=== PATIENT | female | born 1950 | race Caucasian/White ===

== ENCOUNTER 2017-01-05 19:13 | Inpatient (IN) | payer OTHER ==
[~2017-01-05] VITALS: Ht 165.1 cm; Wt 132.2 kg
[2017-01-05 20:15] LABS: HEMATOCRIT 43.4 % (36.0-46.0); MCH 30.3 PG (29.0-34.0); MCHC 31.8 G/DL (30.0-36.0); MCV 95.2 FL (83-99); MEAN PLAT.VOLUME 11.5 uM^3 (9.5-12.4); PLATELET COUNT 179 K/uL (156-360); RBC DIS.WIDTH-CV 13.3 % (11.8-14.6); RBC DIS.WIDTH-SD 46.9 % (39-53); RED BLOOD COUNT 4.56 M/uL (3.80-5.20); WHITE BLOOD COUNT 12.8 K/uL (4.1-10.2)
[2017-01-05 20:23] LABS: CHLORIDE 103 mEq/L (99-109); POTASSIUM 4.1 mEq/L (3.7-5.4); SODIUM 141 mEq/L (136-147)
[2017-01-05 20:25] LABS: GLUCOSE 240 mg/dL (70-99)
[2017-01-05 20:26] LABS: ANION GAP 8 MEQ/L (2-14)
[2017-01-05 20:27] LABS: TOTAL BILIRUBIN 0.5 mg/dL (0.0-1.0)
[2017-01-05 20:28] LABS: ALKALINE PHOSPHATASE 85 IU/L (3-129)
[2017-01-05 20:29] LABS: GFR ESTIMATE (CALCULATED) > 59 mL/min/
[2017-01-05 20:30] LABS: UREA NITROGEN (BUN) 9 mg/dL (9-23)
[2017-01-05 20:33] LABS: TROP-I INTERPRETATION NEGATIVE; TROPONIN-I < 0.01 ng/mL (0.0-0.30)
[2017-01-05] MEDS ORDERED: QUINAPRIL HCL20 MG PO (21:08)
[2017-01-05] MEDS ORDERED: ACTOS30 MG PO (21:08)
[2017-01-05] MEDS ORDERED: METFORMIN HCL500 M4 PO (21:09)
[2017-01-05] MEDS ORDERED: GLIPIZIDE XL5 MG PO ×2 (21:09)
[2017-01-05] MEDS ORDERED: COENZYME Q10100 M1 PO (21:10)
[2017-01-05] MEDS ORDERED: NATURAL LUTEIN20 MG PO (21:11)
[2017-01-05 21:18] LABS: EOSINOPHIL (%) 0.8 % (0-5); EOSINOPHIL COUNT 0.1 K/uL (0-0.3); HEMATOLOGY COMMENT 1 SMEAR COMPATIBLE; IMMATURE GRANULOCYTE (%) 0.8 % (0.0-0.7); IMMATURE GRANULOCYTE COUNT 0.1 K/uL; INSTRUMENT ABS NEUTROPHIL CT 10.1 K/uL; LYMPHOCYTE COUNT 1.5 K/uL (1.0-2.8); NEUTROPHIL (%) 78.5 % (45-76); NEUTROPHIL COUNT 10.1 K/uL (1.8-6.4); PLAT.SUFFICIENCY ADEQUATE
[2017-01-05 23:56] VITALS: BP 138/66
[2017-01-06 02:15] LABS: TROP-I INTERPRETATION NEGATIVE; TROPONIN-I < 0.01 ng/mL (0.0-0.30)
[2017-01-06 03:35] VITALS: BP 145/70
[2017-01-06 07:27] LABS: INTERNAL CONTROL VALID? YES
[2017-01-06 07:34] LABS: EOSINOPHIL (%) 0 % (0-5); HEMATOCRIT 40.4 % (36.0-46.0); IMMATURE GRANULOCYTE (%) 0.6 % (0.0-0.7); IMMATURE GRANULOCYTE COUNT 0.1 K/uL; INSTRUMENT ABS NEUTROPHIL CT 12.2 K/uL; MCH 30.3 PG (29.0-34.0); MCHC 31.7 G/DL (30.0-36.0); MCV 95.5 FL (83-99); MONOCYTE (%) 1.6 % (3-12); MONOCYTE COUNT 0.2 K/uL (0-0.8); NEUTROPHIL (%) 90.5 % (45-76); NEUTROPHIL COUNT 12.2 K/uL (1.8-6.4); PLATELET COUNT 161 K/uL (156-360); RBC DIS.WIDTH-CV 13.3 % (11.8-14.6); RBC DIS.WIDTH-SD 46.7 % (39-53); RED BLOOD COUNT 4.23 M/uL (3.80-5.20); WHITE BLOOD COUNT 13.5 K/uL (4.1-10.2)
[2017-01-06 07:44] VITALS: BP 125/61
[2017-01-06 07:58] LABS: ANION GAP 6 MEQ/L (2-14); CHLORIDE 102 MEQ/L (99-109); GFR ESTIMATE (CALCULATED) > 59 mL/min/; GLUCOSE 269 mg/dL (70-99); POTASSIUM 4.3 MEQ/L (3.7-5.4); SAMPLE HEMOLYSIS CHECK 0; SAMPLE ICTERIC CHECK 0; SAMPLE LIPEMIA CHECK 0; SODIUM 139 MEQ/L (136-147); UREA NITROGEN (BUN) 8 mg/dL (9-23)
[2017-01-06 08:03] LABS: TROP-I INTERPRETATION NEGATIVE; TROPONIN-I < 0.01 ng/mL (0.0-0.30)
[2017-01-06 11:38] VITALS: BP 142/67
[2017-01-06 19:27] VITALS: BP 135/64
[2017-01-06 23:08] VITALS: BP 125/58
[2017-01-07 03:00] VITALS: BP 130/61
[2017-01-07 06:15] LABS: EOSINOPHIL (%) 0.6 % (0-5); EOSINOPHIL COUNT 0.1 K/uL (0-0.3); HEMATOCRIT 40.4 % (36.0-46.0); IMMATURE GRANULOCYTE (%) 0.5 % (0.0-0.7); IMMATURE GRANULOCYTE COUNT 0.1 K/uL; INSTRUMENT ABS NEUTROPHIL CT 9.4 K/uL; LYMPHOCYTE COUNT 3.1 K/uL (1.0-2.8); MCH 30.2 PG (29.0-34.0); MCHC 31.2 G/DL (30.0-36.0); MCV 96.9 FL (83-99); MEAN PLAT.VOLUME 11.9 uM^3 (9.5-12.4); MONOCYTE (%) 8.1 % (3-12); MONOCYTE COUNT 1.1 K/uL (0-0.8); NEUTROPHIL (%) 68.3 % (45-76); NEUTROPHIL COUNT 9.4 K/uL (1.8-6.4); PLATELET COUNT 184 K/uL (156-360); RBC DIS.WIDTH-CV 13.6 % (11.8-14.6); RBC DIS.WIDTH-SD 48.8 % (39-53); RED BLOOD COUNT 4.17 M/uL (3.80-5.20); WHITE BLOOD COUNT 13.8 K/uL (4.1-10.2)
[2017-01-07 06:39] LABS: ANION GAP 8 MEQ/L (2-14); CHLORIDE 103 MEQ/L (99-109); GFR ESTIMATE (CALCULATED) > 59 mL/min/; GLUCOSE 147 mg/dL (70-99); MAGNESIUM 1.8 mg/dl (1.3-2.7); SAMPLE HEMOLYSIS CHECK 0; SAMPLE ICTERIC CHECK 0; SAMPLE LIPEMIA CHECK 0; SODIUM 141 MEQ/L (136-147); UREA NITROGEN (BUN) 13 mg/dL (9-23)
[2017-01-07 07:26] VITALS: BP 137/68
[2017-01-07 10:42] VITALS: BP 146/81
[2017-01-07 11:20] LABS: POINT-OF-CARE METER ID UU14174216
[2017-01-07 16:05] VITALS: BP 136/62
[2017-01-07 16:35] LABS: POINT-OF-CARE METER ID UU13113781
[2017-01-07 19:07] VITALS: BP 162/77
[2017-01-07 20:17] LABS: POINT-OF-CARE METER ID UU13113781
[2017-01-07 23:02] VITALS: BP 132/61
[2017-01-08 03:08] VITALS: BP 136/63
[2017-01-08 06:59] LABS: EOSINOPHIL (%) 1.5 % (0-5); EOSINOPHIL COUNT 0.2 K/uL (0-0.3); HEMATOCRIT 41.6 % (36.0-46.0); IMMATURE GRANULOCYTE (%) 0.5 % (0.0-0.7); IMMATURE GRANULOCYTE COUNT 0.1 K/uL; INSTRUMENT ABS NEUTROPHIL CT 5.8 K/uL; LYMPHOCYTE COUNT 2.9 K/uL (1.0-2.8); MCH 29.9 PG (29.0-34.0); MCV 96.3 FL (83-99); MEAN PLAT.VOLUME 11.7 uM^3 (9.5-12.4); MONOCYTE (%) 9.8 % (3-12); NEUTROPHIL (%) 58.5 % (45-76); NEUTROPHIL COUNT 5.8 K/uL (1.8-6.4); PLATELET COUNT 191 K/uL (156-360); RBC DIS.WIDTH-CV 13.4 % (11.8-14.6); RBC DIS.WIDTH-SD 47.8 % (39-53); RED BLOOD COUNT 4.32 M/uL (3.80-5.20)
[2017-01-08 07:29] LABS: ANION GAP 6 MEQ/L (2-14); CHLORIDE 100 MEQ/L (99-109); GFR ESTIMATE (CALCULATED) > 59 mL/min/; SAMPLE HEMOLYSIS CHECK 0; SAMPLE ICTERIC CHECK 0; SAMPLE LIPEMIA CHECK 0; SODIUM 140 MEQ/L (136-147); UREA NITROGEN (BUN) 10 mg/dL (9-23)
[2017-01-08 07:32] LABS: POINT-OF-CARE METER ID UU13113781
[2017-01-08 07:33] VITALS: BP 142/70
[2017-01-08 07:33] LABS: GLUCOSE 107 mg/dL (70-99); MAGNESIUM 2.1 mg/dl (1.3-2.7)
[2017-01-08 11:26] LABS: POINT-OF-CARE METER ID UU13113781
[2017-01-08 11:41] VITALS: BP 134/67
[2017-01-08 12:34] LABS: ANTI-NUCLEAR AB SCRN/RFLX(ANA) EQUIVOCAL (NONREACTIVE); SCL-70 (SCLERODERMA) ANTIBODY 10 U/mL (0-99)
[2017-01-08 12:42] LABS: CENTROMERE ANTIBODY 2 U/mL (0-99); HISTONE ANTIBODY 14 U/mL (0-99); JO-1 ANTIBODY 111 U/mL (0-99); SM (SMITH) ANTIBODY 30 U/mL (0-99); SS-A (SJOGREN'S) ANTIBODY 23 U/mL (0-99); SS-B (SJOGREN'S) ANTIBODY 13 U/mL (0-99)
[2017-01-08 16:20] LABS: POINT-OF-CARE METER ID UU14174216
[2017-01-08 16:55] VITALS: BP 129/64
[2017-01-08 19:00] VITALS: BP 115/56
[2017-01-08 21:17] LABS: POINT-OF-CARE METER ID UU14174216
[2017-01-08 23:20] VITALS: BP 149/70
[2017-01-09 03:02] VITALS: BP 135/63
[2017-01-09 07:48] VITALS: BP 141/71
[2017-01-09 07:55] LABS: POINT-OF-CARE METER ID UU14174216
[2017-01-09 11:09] LABS: POINT-OF-CARE METER ID UU14174216
[2017-01-09 11:45] VITALS: BP 150/74
[2017-01-09] MEDS ORDERED: AUGMENTIN875 MG PO (12:28)
[2017-01-09] MEDS ORDERED: GUAIFENESI100 MG/5 M PO (12:28)
[2017-01-09] MEDS ORDERED: PREDNISONE20 MG PO (12:28)
[2017-01-11 23:32] LABS: Neutrophil Cytoplasmic Aby Negative (Negative)
== END 2017-01-09 17:45 | disposition home or self-care (01) | DRG 189 ==
LOC: EME 19:13 → EDOF 22:26 → 4EAST 22:26
PROVIDERS: Emergency Medicine; Hospitalist; Internal Medicine; Internal Medicine Pulmonary Disease
DX: J96.01 Acute respiratory failure with hypoxia (principal); J18.8 Other pneumonia, unspecified organism; Z68.42 Body mass index [BMI] 45.0-49.9, adult; E78.5 Hyperlipidemia, unspecified; I27.2 Other secondary pulmonary hypertension; I10 Essential (primary) hypertension; I44.7 Left bundle-branch block, unspecified; I89.0 Lymphedema, not elsewhere classified; E66.01 Morbid (severe) obesity due to excess calories; R00.0 Tachycardia, unspecified; M19.90 Unspecified osteoarthritis, unspecified site; R16.2 Hepatomegaly with splenomegaly, not elsewhere classified; I83.93 Asymptomatic varicose veins of bilateral lower extremities; E04.2 Nontoxic multinodular goiter; J98.01 Acute bronchospasm; I34.0 Nonrheumatic mitral (valve) insufficiency; I36.1 Nonrheumatic tricuspid (valve) insufficiency; I51.7 Cardiomegaly; Z99.81 Dependence on supplemental oxygen; Z79.84 Long term (current) use of oral hypoglycemic drugs; Z82.3 Family history of stroke
CPT/HCPCS: 71010; 71020; 71275; 80048; 80053; 82948; 83605; 83735; 83880; 84443; 84484; 85025; 86021 90; 86038; 86235; 86430; 87040; 87070; 87205; 87449; 93005; 93306; 94640; 94640 76; 94760; 94799; 99202; 99281; 99285; J0456; J0696; J1644; J1815; J2930; J7030; J7050; J7512